=== PATIENT | male | born 1975 | race Caucasian/White ===

== ENCOUNTER 2017-05-24 10:36 | Day surgery (SDC) | payer OTHER ==
[~2017-05-24] VITALS: Ht 175.3 cm; Wt 81.0 kg
[~2017-05-24 10:36] MED LIST: 0.9% Sodium Chloride 1,000 ML IV SCH; PANT40TA3 PO; SUCR1TAB PO; Sodium Chloride LOK Flush 10 mL Syringe IV PRN; fentaNYL-PF 50 mCg/mL 2 mL Inj IVPUSH PRN
[2017-05-24] MEDS ORDERED: fentaNYL-PF 50 mCg/mL 2 mL Inj ONE (10:58)
[2017-05-24 11:02] VITALS: BP 133/91; PULSE 73; RESP 16; O2SAT 97
[2017-05-24] MEDS ORDERED: 0.9% Sodium Chloride 1,000 ML IV ONE (11:50)
[2017-05-24 11:59] VITALS: BP 112/71; PULSE 69; RESP 16; O2SAT 96
[2017-05-24 12:16] VITALS: BP 121/76; PULSE 67; O2SAT 96
--- NOTE | 2017-05-24 23:24 | ENDO ---
[address] [address] ENDOSCOPY PROCEDURE PATIENT: CONOR ABREU : 1975 MR#: [id number] ADMIT: 05/24/2017 JOB ID: [id number] DATE OF SERVICE: 05/24/2017 PROCEDURE: Esophagogastroduodenoscopy. INDICATION: Gastroesophageal reflux. The patient's ASA classification was 1, Mallampati score was 1. MEDICATIONS: 1. Versed 5 mg. 2. Fentanyl 100 mcg. INSTRUMENT USED: GIF H 180 J. PROCEDURE DETAILS: After informed consent was obtained, the patient was brought into the GI suite, where he was placed on oxygen via nasal cannula and monitored with continuous pulse oximeter, telemetry, and blood pressure monitoring. A time-out was performed. Then, he was placed in a left lateral decubitus position and medications were administered for sedation. A bite block was placed. The standard EGD scope was inserted through the bite block and advanced under direct visualization to the second portion of the duodenum without difficulty. FINDINGS: 1. Normal-appearing duodenal bulb, first and second portions. 2. Normal-appearing pylorus, antrum and gastric body. 3. Retroflexed views in the gastric body revealed a normal-appearing cardia and fundus. 4. Multiple random biopsies were obtained throughout the antrum and body of the stomach. 5. Normal-appearing GE junction with a regular Z-line at 42 cm. 6. Normal-appearing esophagus. IMPRESSION: Normal esophagogastroduodenoscopy exam to second portion of the duodenum. RECOMMENDATIONS: 1. Continue PPI. 2. Await biopsy results. 3. Follow up in GI clinic. COMPLICATIONS: None. ESTIMATED BLOOD LOSS: Less than 5 mL.
--- NOTE | 2017-05-27 09:34 | PATH ---
SURGICAL PATHOLOGY Attending Physician:Payal Pablo CASE STATUS: Signed Out PATIENT NAME: CONOR ABREU PID: [id number] : 1975 DATE COLLECTED:05/24/2017 23:29 SPECIMEN: Gastric, Biopsy CLINICAL HISTORY: 1). RANDOM GASTRIC BIOPSIES - R/O H.PYLORI FINAL DIAGNOSIS: Random Stomach, Biopsies: Antral and body-type mucosa with no diagnostic abnormality. Negative for Helicobacter organisms. Negative for intestinal metaplasia. Negative for dysplasia and malignancy. ICD10: R10.9 GROSS DESCRIPTION: Received one formalin-filled container, labeled with the patient's name and labeled "random gastric" are four portions of tissue which aggregate to 0.3 x 0.3 x 0.2 cm. The specimen is entirely submitted in one cassette. [place] [place][id number][place] ICD-9 CODES: CPT CODES: 1: 16901 Electronically Signed Out Lashawn Kilpatrick MD [facility] Pathology [facility] [address], [place] [address] Technical component performed at [facility], [facility] [address], [address]
== END 2017-05-24 23:59 | disposition home or self-care (01) ==
LOC: END 10:36
PROVIDERS: ATTEND Internal Medicine Gastroenterology
DX: K21.9 Gastro-esophageal reflux disease without esophagitis (principal); Z80.0 Family history of malignant neoplasm of digestive organs
CPT/HCPCS: 43239; G0500; J2250; J3010; J7030